=== PATIENT | male | born 2000 | race Caucasian/White ===

== ENCOUNTER 2023-02-15 20:35 | Emergency (ER) | payer OTHER, SELFPAY ==
--- NOTE | ~2023-02-15 | XR_ITS ---
EXAMINATION: XR shoulder RT min 2V INDICATION: Post reduction TECHNIQUE: Two views of the right shoulder are submitted. COMPARISON: [id number] FINDINGS: The dislocated humeral head has been reduced. Glenohumeral and acromioclavicular joint spac es are normal. Soft tissues are unremarkable. IMPRESSION: 1. Reduced humeral dislocation. Reviewed, dictated and finalized at location F.
--- NOTE | ~2023-02-15 | XR_ITS ---
EXAMINATION: XR shoulder RT min 2V INDICATION: Right shoulder pain and deformity TECHNIQUE: Two views of the right shoulder are submitted. COMPARISON: None FINDINGS: There is anterior and inferior dislocation of the humeral head with respect to the glenoid. The acromioclavicular joint space is normal. Soft tissues are unremarkable. IMPRESSION: 1. Anterior and inferior dislocation of the humeral head. Reviewed, dictated and finalized at location F.
[2023-02-15 20:36] VITALS: BP 149/102; PULSE 103; RESP 18; TEMP 36.4; O2SAT 99
--- NOTE | 2023-02-15 21:28 | ED.GENADULT ---
HPI - General Adult General Chief complaint: Extremity Injury, Upper Stated complaint: shoulder pain Time Seen by Provider: 02/15/23 21:17 History of Present Illness HPI narrative: Patient is a 22-year-old gentleman who presents the emergency department with chief complaint of right shoulder dislocation. Patient reports that he has prior history of shoulder dislocations and is sometimes able to be reduced without sedation. Patient denies numbness or tingling reports full range of motion distal to the injury Review of Systems Review of Systems: A 10 system review of systems was completed on the patient and is negative except for what is stated in the HPI. Nursing and ancillary documentation was reviewed. PMFSH Comments Multiple dislocations of right shoulder Exam Narrative: GENERAL: Well-appearing, well-nourished, and in no acute distress. HEAD: Normocephalic, atraumatic. EYES: PERRLA and EOMI. ENT: Nares clear, no rhinorrhea or epistaxis. Mucous membranes moist. NECK: Supple. CHEST: Clear to auscultation. No respiratory distress. HEART: Regular rate and rhythm. No murmur heard. Normal peripheral pulses. ABDOMEN: Soft, nontender, nondistended, normal active bowel sounds. EXTREMITIES: Normal range of motion in all extremities except for right shoulder right shoulder held in a dislocated position. No edema. SKIN: Warm, dry, no rash. NEURO: No focal deficits. Alert and oriented x3. PSYCH: Normal mood and affect. Course Vital Signs Vital signs: Vital Signs Temperature 36.4 C 02/15/23 20:36 Pulse Rate 103 H 02/15/23 20:36 Respiratory Rate 18 02/15/23 20:36 Blood Pressure 149/102 H 02/15/23 20:36 Pulse Oximetry 99 02/15/23 20:36 Oxygen Delivery Room Air 02/15/23 20:36 Temperature 36.4 C 02/15/23 20:36 Pulse Rate 103 H 02/15/23 20:36 Respiratory Rate 18 02/15/23 20:36 Blood Pressure 149/102 H 02/15/23 20:36 Pulse Oximetry 99 02/15/23 20:36 Oxygen Delivery Room Air 02/15/23 20:36 Procedures Orthopedic Joint Reduction Joint #1: Orthopedic Joint Reduction Date: 02/15/23 Orthopedic Joint Reduction Time: 21:34 Time Out Performed: Yes Side: right Joint Reduction Location: shoulder Analgesia: none Pre-Procedure Neuro Vascular Exam: normal Local Anesthesia: none Shoulder Technique Used (if applicable): Javier Post-reduction neuro exam: intact Post-reduction vascular: intact Post Reduction X-Ray Obtained: Yes Post Reduction X-Ray Results: reduced Splint Applied: Yes Patient Tolerated Procedure: well and no complications Medical Decision Making MDM Narrative Medical decision making narrative: Differential diagnosis includes fracture, dislocation, subluxation The patient has had multiple prior dislocations and states that sometimes he is able to be reduced without sedation the patient had requested an attempt for reduction without sedation the shoulder was able to be successfully relocated without sedation without difficulty. Vital Signs Vital Signs: Vital Signs Temperature 36.4 C 02/15/23 20:36 Pulse Rate 103 H 02/15/23 20:36 Respiratory Rate 18 02/15/23 20:36 Blood Pressure 149/102 H 02/15/23 20:36 Pulse Oximetry 99 02/15/23 20:36 Oxygen Delivery Room Air 02/15/23 20:36 Temperature 36.4 C 02/15/23 20:36 Pulse Rate 103 H 02/15/23 20:36 Respiratory Rate 18 02/15/23 20:36 Blood Pressure 149/102 H 02/15/23 20:36 Pulse Oximetry 99 02/15/23 20:36 Oxygen Delivery Room Air 02/15/23 20:36 Discharge Plan Discharge Clinical Impression: Anterior dislocation of right shoulder Patient Disposition: Home, Self-Care Condition: Stable Instructions: Antibiotic Form, Shoulder Dislocation (ED), Shoulder Immobilizer (ED) Follow-up/Referrals: Kelechi Bee MD [Physician] - UNKNOWN,DOCTOR [Non-Staff] - Time of Dispositi
== END 2023-02-15 22:10 | disposition home or self-care (01) ==
PROVIDERS: Emergency Provider Emergency Medicine
DX: M24.411 Recurrent dislocation, right shoulder (principal)
CPT/HCPCS: 23650; 73030; 99285

== ENCOUNTER 2023-02-19 13:20 | Emergency (ER) | payer OTHER, SELFPAY ==
[2023-02-19] VITALS (7 sets, daily range): BP systolic 120–150; BP diastolic 78–94; PULSE 60–95; RESP 18–20; TEMP 35.8–36.6; O2SAT 97–100
--- NOTE | ~2023-02-19 | XR_ITS ---
XR shoulder RT min 2V 02/19/2023 14:00 Indication: Right shoulder dislocation Procedure: 2 views right shoulder Comparison: Comparison to multiple prior studies sequentially, with oldest reviewed study dated 01/28. Findings: There is right anterior shoulder dislocation. No fracture. No soft tissue abnormality. Surr ounding osseous structures are unremarkable. Impression: 1: Right anterior shoulder dislocation. Reviewed, dictated and finalized at location B. Impression: 1: Right anterior shoulder dislocation.
--- NOTE | ~2023-02-19 | XR_ITS ---
XR shoulder RT min 2V 02/19/2023 14:32 Indication: Post reduction right shoulder Procedure: 3 views right shoulder Comparison: 02/19/2023 Findings: There is anatomic alignment of the right shoulder post reduction. No fracture or traumatic malalignment. No significant soft tissue abnormality. No foreign bodies. Impression: 1: Anatomic alignment of the right shoulder post reduction. No fracture. Reviewed, dictated and finalized at location B. Impression: 1: Anatomic alignment of the right shoulder post reduction. No fracture.
--- NOTE | 2023-02-19 13:47 | ED.UPPEXIN ---
HPI - Extremity Injury (Upper) General Chief Complaint: Extremity Injury, Upper Stated Complaint: right shoulder dislocation Time Seen by Provider: 02/19/23 13:32 History of Present Illness HPI narrative: Pt presents with dislocated right shoulder. Pt has recurrent right shoulder dislocations and says had it reduced recently without sedation here in ED. Pt was not wearing immobilizer today. Related Data Allergies Allergy/AdvReac Type Severity Reaction Status Date / Time No Known Allergies Allergy Verified 02/19/23 13:21 Review of Systems Review of Systems: All systems reviewed & are unremarkable except as noted in HPI and below Exam Const: General: healthy appearing and no acute distress Nutritional Appearance: well nourished Orientation/consciousness: patient oriented x3 Limitations: no limitations Resp: Effort & Inspection: normal respiratory effort Auscultation: clear to auscultation bilaterally Cardio: Rate: regular rate GI: GI Palp: Yes Soft to palpation Auscultation: normal bowel sounds Skin: General skin exam: normal color Rashes: no rashes Neuro: General: patient oriented x3, moves all extremities, no meningeal signs and no focal motor deficits Speech: normal speech Extrem: Other: dislocated right shoulder Psych: Mental Status: mental status grossly normal Affect: normal affect Attitude: cooperative Course Vital Signs Vital signs: Vital Signs Temperature 96.5 F L 02/19/23 13:22 Pulse Rate 86 02/19/23 13:22 Respiratory Rate 20 02/19/23 13:22 Blood Pressure 140/94 H 02/19/23 13:22 Pulse Oximetry 100 02/19/23 13:22 Oxygen Delivery Room Air 02/19/23 13:22 Temperature 98 F 02/19/23 14:55 Pulse Rate 63 02/19/23 15:33 Respiratory Rate 18 02/19/23 15:33 Blood Pressure 120/85 02/19/23 15:33 Pulse Oximetry 99 02/19/23 15:33 Oxygen Delivery Room Air 02/19/23 14:55 Oxygen Flow Rate 2 02/19/23 14:25 Procedures Orthopedic Joint Reduction Joint #1: Orthopedic Joint Reduction Date: 02/19/23 Time Out Performed: Yes Side: right Joint Reduction Location: shoulder Analgesia: procedural sedation Pre-Procedure Neuro Vascular Exam: normal Shoulder Technique Used (if applicable): traction/counter-traction and external rotation Post-reduction neuro exam: intact Post-reduction vascular: intact Post Reduction X-Ray Obtained: Yes Post Reduction X-Ray Results: reduced Splint Applied: Yes Patient Tolerated Procedure: well Additional Comments: attempted relocation without sedation but unable to reduce. Procedural Sedation Procedural Sedation #1: Procedural Sedation Date: 02/19/23 Procedure: right shoulder eduction Informed Consent Obtained: yes Equipment in Room: bag and mask, capnography, equine dentist, crash cart, oxygen, pulse oximeter and suction Plan for Sedation: moderate sedation ASA Class: I Mallampati Classification: class I Explanation to Patient/Family: Risk/Benefits/Alternatives and Pt/Family agreed with plan Pt. Educated on Procedural Sedation: Yes Re-evaluated immediately prior: Yes Preparation: equine dentist applied, pulse oximeter, capnometry used, supplemental O2 applied, suction/airway equipment at bedside and IV secured IV Etomidate dose (mg): 13 Patient Tolerated Procedure: well Complications: none Interventions: oxygen applied Total Sedation Time (min): 5 Discharge Plan Discharge Clinical Impression: Anterior shoulder dislocation Qualifiers: Encounter type: initial encounter Laterality: right Qualified Code(s): S43.014A - Anterior dislocation of right humerus, initial encounter Patient Disposition: Home, Self-Care Condition: Improved Instructions: Antibiotic Form, Shoulder Dislocation (ED) Follow-up/Referrals: PHYSICIAN NOT ON STAFF,NON
[2023-02-19] MEDS: fentaNYL CITRATE INJ (*CRX) 100 MCG/2 ML VIAL 50 MCG IV PUSH (14:02)
[2023-02-19] MEDS: SODIUM CHLORIDE 0.9% IV 250 ML (14:04)
[2023-02-19] MEDS: ETOMIDATE 20 MG/10 ML AMPUL 13 MG IV PUSH (14:17)
--- NOTE | 2023-02-19 14:33 | PC.NURSE ---
Pt post sedation awake & alert. Immoblizer applied to right arm. CMS intact. Pt denies any numbness or tingling to right extremity.
--- NOTE | 2023-02-19 14:43 | PC.NURSE ---
Pt denies any c/o pain at this time CMS remains intact. Right arm immobilizer intact.
--- NOTE | 2023-02-19 14:56 | PC.NURSE ---
Pt alert & oriented. CMS intact, immobilizer intact Pt denies any c/o pain
== END 2023-02-19 15:34 | disposition home or self-care (01) ==
PROVIDERS: Emergency Provider Emergency Medicine
DX: M24.411 Recurrent dislocation, right shoulder (principal)
CPT/HCPCS: 23650; 73030; 96374; 99285; J3010; J7050

== ENCOUNTER 2023-05-25 23:48 | Emergency (ER) | payer OTHER, SELFPAY ==
[2023-05-26 00:09] VITALS: BP 144/78; PULSE 112; RESP 16; TEMP 36.8; O2SAT 98
--- NOTE | 2023-05-26 01:54 | ED.GENADULT ---
HPI - General Adult General Chief complaint: Wound/Laceration Stated complaint: left finger lac Time Seen by Provider: 05/26/23 01:50 Source: patient Mode of arrival: ambulatory Limitations: no limitations History of Present Illness HPI narrative: This is a 22-year-old male who presents to the ED with chief complaint of left index finger laceration injury while at work tonight. Accidentally cut it with glass. Denies numbness or weakness. denies Any further sites of pain or injury. Unsure of tetanus status. Related Data Allergies Allergy/AdvReac Type Severity Reaction Status Date / Time No Known Allergies Allergy Verified 02/19/23 13:21 Review of Systems Review of Systems: All systems as dictated in HPI Exam Narrative: GENERAL: Well-appearing, well-nourished, and in no acute distress. HEAD: Normocephalic, atraumatic. EYES: PERRLA and EOMI. ENT: Nares clear, no rhinorrhea or epistaxis. Mucous membranes moist. Oropharynx without tonsillar hypertrophy exudate or other lesions. NECK: Supple. No adenopathy or masses. CHEST: No respiratory distress. Clear to auscultation. No wheezes rales or rhonchi HEART: Regular rate and rhythm. No murmur heard. Normal peripheral pulses. ABDOMEN: Soft, nontender, nondistended, normal active bowel sounds. MSK: Normal range of motion. No edema. SKIN: 2 cm laceration, superficial to the palmar side of the distal left index finger. Bleeding controlled. Neurovascularly intact distally. Range of motion is full NEURO: Alert and oriented x3. No focal deficits. PSYCH: Normal mood and affect. Course Vital Signs Vital signs: Vital Signs Temperature 98.3 F 05/26/23 00:09 Pulse Rate 112 H 05/26/23 00:09 Respiratory Rate 16 05/26/23 00:09 Blood Pressure 144/78 H 05/26/23 00:09 Pulse Oximetry 98 05/26/23 00:09 Oxygen Delivery Room Air 05/26/23 00:09 Temperature 98.3 F 05/26/23 02:21 Pulse Rate 94 05/26/23 02:21 Respiratory Rate 16 05/26/23 02:21 Blood Pressure 132/86 05/26/23 02:21 Pulse Oximetry 99 05/26/23 02:21 Oxygen Delivery Room Air 05/26/23 00:09 Medical Decision Making [facility] Narrative Medical decision making narrative: This is a 22-year-old male who presents to the ED with chief complaint of left index finger laceration. Vitals are normal. Exam shows a 2 cm laceration to the palmar left index finger distally. the wound was cleansed and irrigated here in the department. Tdap was updated. Closed primarily with Dermabond and Steri-Strips at the patient's request. I do feel this is reasonable and that it will hold, the wound edges are approximated. Pt will be discharged in stable condition. Return precautions given and supportive measures discussed. Pt is understanding and agreeable with plan for discharge and follow-up with PCP. Vital Signs Vital Signs: Vital Signs Temperature 98.3 F 05/26/23 00:09 Pulse Rate 112 H 05/26/23 00:09 Respiratory Rate 16 05/26/23 00:09 Blood Pressure 144/78 H 05/26/23 00:09 Pulse Oximetry 98 05/26/23 00:09 Oxygen Delivery Room Air 05/26/23 00:09 Temperature 98.3 F 05/26/23 02:21 Pulse Rate 94 05/26/23 02:21 Respiratory Rate 16 05/26/23 02:21 Blood Pressure 132/86 05/26/23 02:21 Pulse Oximetry 99 05/26/23 02:21 Oxygen Delivery Room Air 05/26/23 00:09 Discharge Plan Discharge Clinical Impression: Laceration Patient Disposition: Home, Self-Care Condition: Stable Instructions: Antibiotic Form, Skin Adhesive Care (ED) Additional Instructions: Keep wound clean and dry. Do not soak, take baths, or swim until wound is completely healed. If any signs of infection such as redness, swelling, increasing pain, drainage of purulent discharge, streaks up your extremity develop, seek medical attention immediately. the glue and Steri-Strips should come off in about 5 days. Follow-up/Referrals: PHYSICIAN NOT ON STAFF,NONST
[2023-05-26] MEDS: TETANUS,DIPHTHERIA,AC PERTUSSIS ADULT (0.5 ML) BOOSTRIX IM (02:01)
[2023-05-26 02:21] VITALS: BP 132/86; PULSE 94; RESP 16; TEMP 36.8; O2SAT 99
== END 2023-05-26 02:22 | disposition home or self-care (01) ==
LOC: ANHED 05-26 02:10
PROVIDERS: Emergency Provider Physician Assistant
DX: S61.211A Laceration without foreign body of left index finger without damage to nail, initial encounter (principal); Z23 Encounter for immunization; W25.XXXA Contact with sharp glass, initial encounter
CPT/HCPCS: 90471; 90715; 99282

== ENCOUNTER 2024-02-19 15:50 | Emergency (ER) | payer OTHER, SELFPAY ==
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
[2024-02-19 15:54] VITALS: BP 132/93; PULSE 84; RESP 16; TEMP 36.4; O2SAT 100
== END 2024-02-19 16:50 | disposition home or self-care (01) ==
PROVIDERS: Emergency Provider Nurse Practitioner Family
DX: S40.812A Abrasion of left upper arm, initial encounter (principal); S50.312A Abrasion of left elbow, initial encounter; S50.811A Abrasion of right forearm, initial encounter; V23.49XA Other motorcycle driver injured in collision with car, pick-up truck or van in traffic accident, initial encounter
CPT/HCPCS: 99213; G0463